=== PATIENT | female | born 1970 | race Caucasian/White ===

== ENCOUNTER 2020-05-20 17:48 | Emergency (ER) | payer MEDICAID ==
[~2020-05-20] VITALS: Ht 177.8 cm; Wt 72.7 kg
[~2020-05-20 17:48] MED LIST: NAPR-996 PO; NO HOME MEDS; PHEN-786 PO
[2020-05-20 17:56] VITALS: BP 169/90
[2020-05-20] MEDS ORDERED: ibuprofen tablet 400 MG TABLET PO ONE (18:55)
[2020-05-20] MEDS ORDERED: IBUP-1984 PO (18:57)
[2020-05-20] MEDS ORDERED: traMADol 50MG tablet PO ONE (19:25)
== END 2020-05-20 19:43 | disposition home or self-care (01) ==
LOC: ER 17:49
DX: S92.511A Displaced fracture of proximal phalanx of right lesser toe(s), initial encounter for closed fracture (principal); Z90.710 Acquired absence of both cervix and uterus; Z98.890 Other specified postprocedural states; W22.8XXA Striking against or struck by other objects, initial encounter; Y93.89 Activity, other specified; Y92.89 Other specified places as the place of occurrence of the external cause; Y99.8 Other external cause status
CPT/HCPCS: 73660; 99283

== ENCOUNTER → 2021-02-25 | Emergency (ER) | payer BC, MEDICAID ==
[~2021-02-25] VITALS: Ht 177.8 cm; Wt 79.5 kg
[~2021-02-25] MED LIST changes: +ketorolac tromethamine 15mg/ml inj. IM ONE
[2021-02-25 19:43] VITALS: BP 185/98
== END | disposition home or self-care (01) ==
LOC: ER 23:22
DX: R21 Rash and other nonspecific skin eruption (principal); M79.661 Pain in right lower leg; M79.662 Pain in left lower leg; K21.9 Gastro-esophageal reflux disease without esophagitis; Z87.891 Personal history of nicotine dependence; Z90.710 Acquired absence of both cervix and uterus; Z98.51 Tubal ligation status; Z79.899 Other long term (current) drug therapy
CPT/HCPCS: 96372; 99283; J1885

== ENCOUNTER 2023-03-09 10:24 | Emergency (ER) | payer OTHER, MEDICAID ==
[~2023-03-09] VITALS: Ht 175.3 cm; Wt 69.5 kg
[~2023-03-09 10:24] MED LIST changes: -ketorolac tromethamine 15mg/ml inj. IM ONE
[2023-03-09 11:58] VITALS: BP 127/80
== END 2023-03-09 14:33 | disposition home or self-care (01) ==
LOC: ER 10:25
DX: R07.81 Pleurodynia (principal); Z90.710 Acquired absence of both cervix and uterus; Z79.899 Other long term (current) drug therapy; Z91.030 Bee allergy status; Z87.891 Personal history of nicotine dependence
CPT/HCPCS: 71045; 99283

== ENCOUNTER 2023-06-26 05:44 | Day surgery (SDC) | payer OTHER, MEDICAID ==
[2023-06-19 11:42] LABS: BILIRUBIN,URINE NEGATIVE (Neg); CLARITY,URINE SLIGHTLY CLOUDY (Clear); COLOR,URINE YELLOW (Yellow); GLUCOSE, URINE NEGATIVE (Neg); KETONES,URINE NEGATIVE (Neg); LEUKOCYTE ESTERASE ,URINE NEGATIVE (Neg); NITRITES, URINE NEGATIVE (Neg); OCCULT BLOOD,URINE TRACE-INTACT (Neg); PROTEIN,URINE NEGATIVE (Neg); UROBILINOGEN,URINE 0.2 E.U/dL (0.2-1.0)
[2023-06-19 11:44] LABS: UA COLLECTION TYPE CLN CATCH MIDSTREAM
[2023-06-19 11:47] LABS: MUCUS STRANDS MANY /LPF (Neg); SQUAMOUS EPITHELIAL CELL,UR MODERATE /LPF (FEW)
[2023-06-19 11:48] LABS: BACTERIA,URINE FEW /HPF (Neg); WBC,URINE 0-4 /HPF (0-4)
[2023-06-19 11:49] LABS: BASOPHILS # (AUTO) 0.1 X10'3 (0-0.2); BASOPHILS % (AUTO) 1.2 % (0-1); EOSINOPHILS # (AUTO) 0.2 X10'3 (0-0.9); EOSINOPHILS % (AUTO) 2.2 % (0-6); LYMPHOCYTES % (AUTO) 25.5 % (21-51); MEAN CORPUSCULAR HEMOGLOBIN 30.3 PG (27.0-31.0); MEAN CORPUSCULAR HGB CONC 33.2 g/dL (33.0-36.5); MEAN CORPUSCULAR VOLUME 91.1 FL (78-98); MONOCYTES # (AUTO) 0.6 X10'3 (0-0.9); MONOCYTES % (AUTO) 8.2 % (2-12); NEUTROPHILS # (AUTO) 4.8 X10'3 (1.8-7.7); NEUTROPHILS % (AUTO) 62.9 % (42-75); PRE OP HEMATOCRIT 45.6 % (35.0-45.0); PRE OP HEMOGLOBIN 15.2 g/dL (12.0-16.0); PRE OP PLATELET COUNT 389 X10'3 (140-440); PRE OP WHITE BLOOD COUNT 7.7 10'3 (4.8-10.8); RED BLOOD COUNT 5.01 X10'6 (4.20-5.60); RED CELL DISTRIBUTION WIDTH 13.5 % (11.5-14.5)
[2023-06-19 12:07] LABS: ALBUMIN 3.9 G/DL (3.4-5.0); ALBUMIN/GLOBULIN RATIO 1.1 (1.1-1.5); ALKALINE PHOSPHATASE 103 IU/L (46-116); BLOOD UREA NITROGEN 17 MG/DL (7-18); BUN/CREATININE RATIO 15.9 (10.0-20.0); CALCIUM 9.2 MG/DL (8.5-10.1); CHLORIDE 103 MMOL/L (99-107); CREATININE 1.07 MG/DL (0.40-0.90); PRE OP ALT 37 U/L (30-65); PRE OP ANION GAP 8 (8-16); PRE OP AST 24 U/L (10-37); PRE OP BILIRUB, TOTAL 1.2 MG/DL (0.0-1.0); PRE OP GLUCOSE 69 MG/DL (70-104); PRE OP POTASSIUM 3.6 MMOL/L (3.4-5.1); PRE OP SODIUM 141 MMOL/L (135-145); TOTAL CARBON DIOXIDE 29.6 MMOL/L (24-32); TOTAL PROTEIN 7.6 G/DL (6.4-8.2); eGFR 54 ML/MIN
[2023-06-26] VITALS (7 sets, daily range): BP systolic 121–156; BP diastolic 75–94; PULSE 72–82; RESP 8–16; TEMP 96.9; O2SAT 96–100
[~2023-06-26] VITALS: Ht 175.3 cm; Wt 71.0 kg
[~2023-06-26 05:44] MED LIST changes: +IBUP-1984 PO; -NAPR-996 PO; -NO HOME MEDS; +OMEP20CA16 PO; -PHEN-786 PO; +cefazolin 2gm/D5W 100mL 100 ML IV ONE; +famotidine 20mg tablet PO ONE; +ringers solution, lacted 1,000 ML IV SCH
[2023-06-26] MEDS ORDERED: BUPIVAcaine 2.5mg/ml inj 50ml vial (contains preservative) SQ ONE (09:00)
[2023-06-26] MEDS ORDERED: lidocaine 1%/epinephrine 1:100,000 inj. 50ml multi-dose vial IJ ONE (09:00)
[2023-06-26] MEDS ORDERED: LIDOcaine 1% w/EPI 1:100,000 inj. MDV 50 ML VIAL ONE (09:26)
[2023-06-26] MEDS ORDERED: BUPIVAcaine 2.5mg/ml inj 50ml vial (contains preservative) ONE (09:27)
[2023-06-26] MEDS ORDERED: ondansetron/PF 4mg/2ml inj ONE (09:47)
[2023-06-26] MEDS ORDERED: sevoflurane 250ml liquid IH ONE (09:47)
[2023-06-26] MEDS ORDERED: midazolam 1 mg/ML 2ml injection ONE (09:59)
[2023-06-26] MEDS ORDERED: fentaNYL/PF 50MCG/1 ML 2ML syringe ONE (09:59)
[2023-06-26] MEDS ORDERED: ringers solution, lacted 1,000 ML IV SCH (10:25)
[2023-06-26] MEDS ORDERED: morphine 2 MG/ML inj. syringe IV PRN (10:25)
[2023-06-26] MEDS ORDERED: proCHLORperazine 10 MG/2 ml inj IV PRN (10:25)
[2023-06-26] MEDS ORDERED: meperidine/PF 25mg/ml syringe IV PRN ×3 (10:25)
[2023-06-26] MEDS ORDERED: morphine 4 MG/ML inj SYRINge IV PRN (10:25)
[2023-06-26] MEDS ORDERED: ondansetron/PF 4mg/2ml inj IV PRN (10:25)
[2023-06-26] MEDS ORDERED: LIDOcaine 2% (20mg/ml) 5ml vial ONE (10:37)
[2023-06-26] MEDS ORDERED: propofol inj 20 ML IV ONE (10:37)
[2023-06-26] MEDS ORDERED: dexamethasone sod phosphate 4mg/ml inj. ONE (10:37)
--- NOTE | 2023-06-26 11:08 | NUR ---
Received from OR via [facility], accompanied by Anesthesiologist and report given by EITAN Anesthesiologist. PATIENT UNCONSCIOUS WITH ORAL AIRWAY, NO S/S OF PAIN, V/S WNL, PIV 20G RIGHT FOREARM, LEFT SHOULDER DRESSING C/D/I. Addendum: 06/26/23 at 1120 by Destin Gomez RN Amended: Links added.
--- NOTE | 2023-06-26 11:58 | NUR ---
ALL DISCHARGE CRITERIA HAS BEEN MET. VSS, PAIN AT A TOLERABLE LEVEL, ABLE TO SAFELY AMBULATE AND TRANSFER SELF. IV TAKEN OUT WITHOUT ANY COMPLICATIONS. ALL DISCHARGE INSTRUCTIONS COVERED WITH PATIENT AND ALL QUESTIONS ANSWERED. PATIENT TAKEN OUT VIA WHEELCHAIR WITH ALL BELONGINGS TO PERSONAL VEHICLE WHERE FAMILY DROVE PATIENT HOME. Addendum: 06/26/23 at 1205 by Destin Gomez RN Amended: Links added.
== END 2023-06-26 11:58 | disposition home or self-care (01) ==
LOC: PAS 05:44
PROVIDERS: ATTEND Surgery
DX: D17.22 Benign lipomatous neoplasm of skin and subcutaneous tissue of left arm (principal); G43.909 Migraine, unspecified, not intractable, without status migrainosus; K21.9 Gastro-esophageal reflux disease without esophagitis; Z79.899 Other long term (current) drug therapy; Z87.891 Personal history of nicotine dependence; Z90.710 Acquired absence of both cervix and uterus; Z98.51 Tubal ligation status; Z91.030 Bee allergy status; Z91.018 Allergy to other foods; Z72.89 Other problems related to lifestyle
CPT/HCPCS: 24071; 36415; 80053; 81001; 82948; 85025; 93005; J0690; J1100; J2250; J2405; J2704; J3010; J3490; J7030; J7120; Z7506; Z7508; Z7512; A4618; A7000

== ENCOUNTER 2023-12-03 19:34 | Emergency (ER) | payer BC, MEDICAID ==
[~2023-12-03] VITALS: Ht 175.3 cm; Wt 72.7 kg
[~2023-12-03 19:34] MED LIST changes: -cefazolin 2gm/D5W 100mL 100 ML IV ONE; -famotidine 20mg tablet PO ONE; -ringers solution, lacted 1,000 ML IV SCH
[2023-12-03 20:21] VITALS: BP 165/117; PULSE 119; RESP 16; TEMP 98; O2SAT 97
== END 2023-12-04 02:08 | disposition left against medical advice (07) ==
LOC: ER 19:35
DX: S91.339A Puncture wound without foreign body, unspecified foot, initial encounter (principal); Z53.21 Procedure and treatment not carried out due to patient leaving prior to being seen by health care provider; W04.XXXA Fall while being carried or supported by other persons, initial encounter; Y93.89 Activity, other specified; Y92.89 Other specified places as the place of occurrence of the external cause; Y99.8 Other external cause status
CPT/HCPCS: 99281